=== PATIENT | female | born 1945 | race Caucasian/White ===

== ENCOUNTER → 2018-06-20 | Outpatient (CLI) | payer OTHER ==
[~2018-06-20] MED LIST: ADULT LOW DOSE81 MG PO; ADVAIR 250-501 EACH INH; ALLEGRA D PO; ASPIRIN325; CELEBREX 200 M200 M1; COLACE100 MG PO; CRANBERRY PO; ESTRACE VAG; GLUCOSAMINE HC500 MG PO; IRON PO; LISINOPRIL-HCT1 EACH PO; METAMUCIL PAC1 UDPK1 PO; METAMUCIL283 GM; MOM; MULTIVITAMINS PO; NABUMETONE 750750 M1 PO; NEURONTIN 300M300 M2; NITROFURANTOIN50 M4 PO; OXYIR 5 MG CAPSU5 M1; PERCOCET 5-3251 EACH; PRILOSEC 20 MG20 MG PO; PROAIR HFA8.5 GM INH; RESTORIL15 MG PO; ULTRAM 50MG TAB50 MG PO; VITAMIN B12 PO; VITAMIN D34000 UNIT PO; XARELTO10 M1
== END ==
LOC: M.RAD 14:30
DX: K44.9 Diaphragmatic hernia without obstruction or gangrene (principal); R05 Cough